=== PATIENT | female | born 1945 | race Two or more races ===

== ENCOUNTER 2018-01-21 08:41 | Outpatient (CLI) | payer OTHER | END 2018-01-21 08:45 | disposition home or self-care (01) | LOC: RX STUDY 08:41 | DX: R10.31 Right lower quadrant pain (principal); R10.32 Left lower quadrant pain; K56.609 Unspecified intestinal obstruction, unspecified as to partial versus complete obstruction ==

== ENCOUNTER 2018-09-27 06:13 | Day surgery (SDC) | payer OTHER | END 2018-09-27 11:50 | disposition home or self-care (01) | LOC: AMB-ENDOS 06:13 | DX: D12.3 Benign neoplasm of transverse colon (principal); K52.89 Other specified noninfective gastroenteritis and colitis ==

== ENCOUNTER 2019-08-06 23:44 | Emergency (ER) | payer OTHER ==
[~2019-08-06] VITALS: Ht 165.1 cm; Wt 62.1 kg
[2019-08-07] MEDS ORDERED: VOLTAREN-XR100 MG (00:02)
[2019-08-07] MEDS ORDERED: PANADOL EXTRA500 MG (00:03)
[2019-08-07] MEDS ORDERED: NORVASC2.5 M1 (00:03)
[2019-08-07] MEDS ORDERED: CIPRO500 MG PO (03:43)
[2019-08-07] MEDS ORDERED: MOBIC15 MG PO (03:43)
== END 2019-08-07 04:00 ==
LOC: ER 23:44
DX: K64.8 Other hemorrhoids (principal)

== ENCOUNTER 2022-02-12 07:45 | Inpatient (IN) | payer OTHER ==
[~2022-02-12] VITALS: Ht 165.1 cm; Wt 57.6 kg
[~2022-02-12 07:45] MED LIST: CIPRO500 MG PO; MOBIC15 MG PO; NORVASC2.5 M1 PO; PANADOL EXTRA500 MG; VOLTAREN-XR100 MG
[2022-02-12] MEDS ORDERED: LATANOPROST 0.7.5 ML OP (09:21)
[2022-02-12] MEDS ORDERED: DORZOLAMIDE HCL10 ML OP (09:22)
[2022-02-12] MEDS ORDERED: DAFLONEX-XL 11300 MG PO (09:22)
[2022-02-12] MEDS ORDERED: LOSARTAN POTASS50 MG PO (09:23)
[2022-02-16] MEDS ORDERED: EMERGEN-C IMM1000 MG (09:24)
[2022-02-16] MEDS ORDERED: PANADOL EXTRA500 MG (09:24)
[2022-02-16] MEDS ORDERED: LATANOPROST2.5 ML (09:24)
[2022-02-18] MEDS ORDERED: BACTRIM DS TAB1 EACH PO (06:26)
[2022-02-18] MEDS ORDERED: XARELTO10 MG PO (06:26)
[2022-02-18] MEDS ORDERED: INTEGRA PLUS C1 EACH PO (06:26)
[2022-02-18] MEDS ORDERED: OXYC1TAB9 PO (06:26)
== END 2022-02-18 13:31 | DRG 470 ==
LOC: O/R 02-16 06:22 → SURH 02-16 07:00
PROVIDERS: ADMIT Orthopaedic Surgery Sports Medicine; ATTEND Orthopaedic Surgery Sports Medicine
PROC: 0SRC0J9 Replacement of Right Knee Joint with Synthetic Substitute, Cemented, Open Approach (ICD-10-PCS; principal; 2022-02-16 07:00)
DX: M17.11 Unilateral primary osteoarthritis, right knee (principal); I10 Essential (primary) hypertension; Z20.822 Contact with and (suspected) exposure to COVID-19

== ENCOUNTER 2025-10-12 11:00 | Inpatient (IN) | payer OTHER ==
[~2025-10-12] VITALS: Ht 165.1 cm; Wt 62.6 kg
[~2025-10-12 11:00] MED LIST changes: +BACTRIM DS TAB1 EACH PO; +COZAAR50 MG; +DAFLONEX-XL 11300 MG PO; +DOLOGESIC-DF 51 EACH; +DORZOLAMIDE HCL10 ML OP; +EMERGEN-C IMM1000 MG; +INTEGRA PLUS C1 EACH PO; +LATANOPROST 0.7.5 ML OP; +LATANOPROST2.5 ML; +LOSARTAN POTASS50 MG PO; +NORVASC5 MG; +OXYC1TAB9 PO; +PROTONIX40 MG; +TRAM1TAB98 PO; +XARELTO10 MG; +XARELTO10 MG PO
[2025-10-12] MEDS ORDERED: PEPCID AC20 MG PO (12:19)
[2025-10-12] MEDS ORDERED: VITAMIN C100 MG PO (12:20)
[2025-10-12] MEDS ORDERED: BIOTIN1 MG (12:20)
[2025-10-12 12:29] VITALS: BP 150/78
[2025-10-22] MEDS ORDERED: KETOROLAC TROMETHAMINE 60 MG VIAL IM ONE (15:30)
[2025-10-22] MEDS ORDERED: CEFAZOLIN SODIUM 1,000 MG VIAL IV ONE (15:30)
[2025-10-22] MEDS ORDERED: BUPIVACAINE HCL 30 ML VIAL IJ ONE (15:30)
[2025-10-22] MEDS ORDERED: MORPHINE SULFATE 4 MG/ML CARTRIDGE IV ONE (15:30)
[2025-10-22] MEDS ORDERED: LIDOCAINE HCL 1%/EPINEPHRINE 20ML VIAL IJ ONE (15:30)
[2025-10-22] MEDS ORDERED: TRANEXAMIC ACID 100MG/1ML (1000MG) AMPUL IV ONE ×2 (15:30)
[2025-10-22] MEDS ORDERED: ONDANSETRON HCL 2 MG/ML VIAL IV PRN (17:45)
[2025-10-22] MEDS ORDERED: MORPHINE SULFATE 4 MG/ML CARTRIDGE IV PRN (17:45)
[2025-10-22] MEDS ORDERED: SODIUM CHLORIDE 0.45 % 1,000 ML IV SCH (17:45)
[2025-10-22] MEDS ORDERED: CEFAZOLIN SODIUM 1,000 MG VIAL IV SCH (18:00)
[2025-10-22] MEDS ORDERED: GENTAMICIN SULFATE 40 MG/ML VIAL IV SCH (21:00)
[2025-10-23] VITALS: BP 135/65; O2SAT 99
[2025-10-23 07:29] LABS: BASO % 0.4 % (0.1-1.2); EOS # 0.01 (0.04-0.54); EOS % 0.2 % (0.7-7.0); LYMPH # 0.85 (1.18-3.74); LYMPH % 16.7 % (19.3-53.1); MEAN PLATELET VOLUME 11.00 fl (9.4-12.4); MONO # 0.33 (0.24-0.82); MONO % 6.5 % (4.7-12.5); NEUT # 3.87 (1.56-6.13); NEUT % 76.0 % (34.0-71.1); RED CELL DISTRIBUTION WIDTH 13.0 % (11.6-14.4)
[2025-10-23] MEDS ORDERED: ACETAMINOPHEN WITH CODEINE 1 UDTAB TABLET PO PRN (08:15)
[2025-10-23 08:30] VITALS: BP 128/68; O2SAT 99
[2025-10-23] MEDS ORDERED: SENNA/DOCUSATE SODIUM 1 TAB TABLET PO SCH (09:00)
[2025-10-23] MEDS ORDERED: AMLODIPINE BESYLATE 5 MG TABLET PO SCH (09:00)
[2025-10-23] MEDS ORDERED: IRON FUM,PS/FOLIC/BCOMP,C NO.9 1 CAP CAPSULE PO SCH (09:00)
[2025-10-23] MEDS ORDERED: RIVAROXABAN 10 MG TAB PO SCH (09:00)
[2025-10-23] MEDS ORDERED: CELECOXIB 200 MG CAPSULE PO SCH (09:00)
[2025-10-23] MEDS ORDERED: LOSARTAN POTASSIUM 50 MG TABLET PO SCH (09:00)
[2025-10-23] MEDS ORDERED: BACITRACIN 28.35 GM OINT.TUBE TOP SCH (09:00)
[2025-10-23 12:14] LABS: COVID-19 AG NEGATIVE (NEGATIVE)
[2025-10-23 16:47] VITALS: BP 142/70; O2SAT 98
[2025-10-23] MEDS ORDERED: SULFAMETHOXAZOLE/TRIMETHOPRIM DS 1 TAB PO SCH (17:00)
[2025-10-24 03:05] VITALS: BP 111/66; O2SAT 97
[2025-10-24] MEDS ORDERED: INTEGRA PLUS C1 EACH PO (06:43)
[2025-10-24] MEDS ORDERED: Septra Ds Tablet PO (06:43)
[2025-10-24] MEDS ORDERED: XARELTO10 MG PO (06:44)
[2025-10-24] MEDS ORDERED: ACETAMINOPHEN-1 EAC2 PO (06:44)
[2025-10-24 07:57] LABS: BASO % 0.5 % (0.1-1.2); EOS # 0.10 (0.04-0.54); EOS % 1.6 % (0.7-7.0); LYMPH # 1.25 (1.18-3.74); LYMPH % 19.8 % (19.3-53.1); MEAN PLATELET VOLUME 11.20 fl (9.4-12.4); MONO # 0.35 (0.24-0.82); MONO % 5.5 % (4.7-12.5); NEUT # 4.56 (1.56-6.13); NEUT % 72.3 % (34.0-71.1); RED CELL DISTRIBUTION WIDTH 13.2 % (11.6-14.4)
[2025-10-24 09:03] VITALS: BP 101/62; O2SAT 98
[2025-10-24 16:00] VITALS: BP 100/52; O2SAT 99
== END 2025-10-24 17:01 | DRG 470 ==
LOC: SURH 10-22 07:00 → O/R 10-22 11:00 → SURH 10-22 11:00
PROVIDERS: ADMIT Orthopaedic Surgery Sports Medicine; ATTEND Orthopaedic Surgery Sports Medicine
PROC: 0SRB02Z Replacement of Left Hip Joint with Metal on Polyethylene Synthetic Substitute, Open Approach (ICD-10-PCS; principal; 2025-10-22 07:00)
DX: M16.12 Unilateral primary osteoarthritis, left hip (principal); Z96.642 Presence of left artificial hip joint